=== PATIENT | female | born 1965 | race Caucasian/White ===

== ENCOUNTER → 2018-01-30 | Outpatient (CLI) | payer BC ==
[~2018-01-30] MED LIST: RANI1TAB4 PO
[2018-01-30 11:59] LABS: Urine Blood Negative /uL (Negative); Urine Specific Gravity 1.015 (1.001-1.035)
[2018-01-30 12:01] LABS: Basophils # (auto) 0 uL; Basophils % (auto) 0.7 % (0.0-2.0); Eosinophils # (auto) 0.1 uL; Eosinophils % (auto) 1.6 % (0.0-7.0); Hemoglobin 13.6 g/dL (12.2-16.2); Lymphocytes # (auto) 1.2 uL; Lymphocytes % (auto) 31.2 % (10.0-50.0); Mean Corpuscular Hemoglobin 30.6 pg (28.0-32.0); Mean Corpuscular Hgb Conc. 33.3 g/dL (32.0-36.0); Mean Corpuscular Volume 91.8 fL (80.0-100.0); Monocytes # (auto) 0.3 uL; Monocytes % (auto) 7.6 % (0.0-12.0); Neutrophils # (auto) 2.3 uL; Neutrophils % (auto) 58.9 % (37.0-80.0); Nucleated Red Blood Cells % 0.2 %; Platelet Count (auto) 243 10^3/uL (140-450); Red Blood Cells 4.46 10^6/uL (4.0-5.20); Red Cell Distribution Width 13.2 % (11.8-14.3); White Blood Cell 3.9 10^3/uL (4.4-10.8)
[2018-01-30 12:19] LABS: Free T4 (Free Thyroxine) 0.9 ng/dL (0.89-1.76)
[2018-01-30 12:21] LABS: Albumin 4.2 g/dL (3.4-5.0); BUN/Creatinine Ratio 10.3; Bilirubin, Total 0.3 mg/dL (0.2-1.0); Calcium 9.3 mg/dL (8.5-10.1); Total Protein 8.2 g/dL (6.4-8.2)
== END | disposition home or self-care (01) ==
LOC: Rad HDHVI 09:51
PROVIDERS: ATTEND Internal Medicine Cardiovascular Disease
DX: I34.0 Nonrheumatic mitral (valve) insufficiency (principal); I20.9 Angina pectoris, unspecified; I10 Essential (primary) hypertension; E03.9 Hypothyroidism, unspecified; E11.9 Type 2 diabetes mellitus without complications; E55.9 Vitamin D deficiency, unspecified; D51.9 Vitamin B12 deficiency anemia, unspecified; N39.0 Urinary tract infection, site not specified
CPT/HCPCS: 36415; 80053; 80061; 81003; 82306; 82607; 83036; 84439; 84443; 85025; 87086; 93306

== ENCOUNTER → 2018-02-07 | Outpatient (CLI) | payer BC ==
[~2018-02-07] MED LIST changes: +IOHEXOL 350 MG/ML 100ML IJ ONE
[2018-02-07 08:30] VITALS: BP 148/74
[2018-02-07 08:57] VITALS: BP 140/53
== END | disposition home or self-care (01) ==
LOC: Rad HDHVI 08:22
PROVIDERS: ATTEND Internal Medicine Cardiovascular Disease
DX: E04.8 Other specified nontoxic goiter (principal)
CPT/HCPCS: 71275; 82565; G0463; Q9967

== ENCOUNTER → 2019-04-22 | Outpatient (CLI) | payer BC ==
[~2019-04-22] MED LIST changes: -IOHEXOL 350 MG/ML 100ML IJ ONE; -RANI1TAB4 PO; +RANI75TA65 PO
== END | disposition home or self-care (01) ==
LOC: Rad HDHVI 11:41
PROVIDERS: ATTEND Internal Medicine Cardiovascular Disease
DX: I20.9 Angina pectoris, unspecified (principal); E06.3 Autoimmune thyroiditis; R00.2 Palpitations
CPT/HCPCS: 93880

== ENCOUNTER → 2019-05-11 | Outpatient (CLI) | payer BC ==
[~2019-05-11] VITALS: Ht 165.1 cm; Wt 62.6 kg
== END | disposition home or self-care (01) ==
LOC: Rad HDHVI 13:13
PROVIDERS: ATTEND Internal Medicine Cardiovascular Disease
DX: I34.0 Nonrheumatic mitral (valve) insufficiency (principal); I20.0 Unstable angina; I10 Essential (primary) hypertension; R07.89 Other chest pain; R42 Dizziness and giddiness; R00.2 Palpitations
CPT/HCPCS: 78452; 93017; 93306; 96374; A9500

== ENCOUNTER → 2019-05-18 | Outpatient (CLI) | payer BC | END | disposition home or self-care (01) | LOC: LAB 12:03 | PROVIDERS: ATTEND Internal Medicine Cardiovascular Disease | DX: Z13.88 Encounter for screening for disorder due to exposure to contaminants (principal); R21 Rash and other nonspecific skin eruption; R23.4 Changes in skin texture; G60.9 Hereditary and idiopathic neuropathy, unspecified; R51 Headache; R20.2 Paresthesia of skin; R11.2 Nausea with vomiting, unspecified | CPT/HCPCS: 36415; 83655; 83825; 85652; 86141; 86256 ==

== ENCOUNTER → 2019-05-20 | Outpatient (CLI) | payer BC | END | disposition home or self-care (01) | LOC: LAB 11:35 | PROVIDERS: ATTEND Internal Medicine Cardiovascular Disease | DX: T56.1X1A Toxic effect of mercury and its compounds, accidental (unintentional), initial encounter (principal); R78.71 Abnormal lead level in blood; X58.XXXA Exposure to other specified factors, initial encounter | CPT/HCPCS: 83655; 83825 ==

== ENCOUNTER → 2021-03-09 | Emergency (ER) | payer BC ==
[~2021-03-09] VITALS: Ht 165.1 cm; Wt 69.4 kg
[~2021-03-09] MED LIST changes: +ONDANSETRON ODT 4 MG TAB PO ONE; +SUMAtriptan SUCCINATE 6 MG/0.5 ML VL SC ONE
[2021-03-09 19:51] VITALS: BP 142/92
[2021-03-09 20:19] LABS: Basophils # (auto) 0 10 ^3/uL (0-0.2); Basophils % (auto) 0.4 % (0.0-2.0); Eosinophils # (auto) 0 10 ^3/uL (0-0.8); Eosinophils % (auto) 0.3 % (0.0-7.0); Hematocrit 38.8 % (36.0-46.0); Hemoglobin 12.8 g/dL (12.2-16.2); Lymphocytes # (auto) 1.7 10 ^3/uL (0.4-5.4); Lymphocytes % (auto) 29.8 % (10.0-50.0); Mean Corpuscular Hemoglobin 29.6 pg (28.0-32.0); Mean Corpuscular Hgb Conc. 33.1 g/dL (32.0-36.0); Mean Corpuscular Volume 89.5 fL (80.0-100.0); Monocytes # (auto) 0.3 10 ^3/uL (0-1.3); Monocytes % (auto) 5.6 % (0.0-12.0); Neutrophils # (auto) 3.6 10 ^3/uL (1.6-8.6); Neutrophils % (auto) 63.9 % (37.0-80.0); Red Blood Cells 4.33 10^6/uL (4.0-5.20); Red Cell Distribution Width 13.8 % (11.8-14.3); White Blood Cell 5.7 10^3/uL (4.4-10.8)
[2021-03-09 20:39] LABS: Albumin 3.9 g/dL (3.4-5.0); BUN/Creatinine Ratio 16.9; Calcium 8.6 mg/dL (8.5-10.1); Potassium 3.8 mmol/L (3.5-5.1)
[2021-03-09 20:42] LABS: Bilirubin, Total 0.4 mg/dL (0.2-1.0)
== END | disposition home or self-care (01) ==
LOC: ER 15:34
DX: R51.9 Headache, unspecified (principal)
CPT/HCPCS: 36415; 70450; 80053; 85025; 96372; 99284; J3030; Q0162

== ENCOUNTER → 2022-01-12 | Outpatient (CLI) | payer BC ==
[~2022-01-12] MED LIST changes: +MULTIPLE VIT 10 ML IV ONE; +MVI in SODIUM CHLORIDE 0.9% 1,000 ML IVB ONE; -ONDANSETRON ODT 4 MG TAB PO ONE; -SUMAtriptan SUCCINATE 6 MG/0.5 ML VL SC ONE
[2022-01-12 13:00] VITALS: BP 135/94
[2022-01-12 13:40] VITALS: BP 122/80
[2022-01-12 14:30] VITALS: BP 126/67
[2022-01-12 15:00] VITALS: BP 140/68
[2022-01-12 15:45] VITALS: BP 132/62
[2022-01-12 16:35] VITALS: BP 125/63
== END | disposition home or self-care (01) ==
LOC: CHF HDHVI 13:03
PROVIDERS: ATTEND Internal Medicine Cardiovascular Disease
DX: E86.0 Dehydration (principal)
CPT/HCPCS: 96365; 96366; G0463; J7030; 96360

== ENCOUNTER → 2022-09-26 | Outpatient (CLI) | payer BC ==
[~2022-09-26] MED LIST changes: +IOHEXOL 350 MG/ML 100ML IJ ONE; -MULTIPLE VIT 10 ML IV ONE; -MVI in SODIUM CHLORIDE 0.9% 1,000 ML IVB ONE; +NITR-87 PO; +READI-CAT 2 (BARIUM SULF)(VANILLA SMOOTHIE) 450ML ONE
[2022-09-26 10:10] VITALS: BP 137/75
[2022-09-26 11:11] VITALS: BP 149/78
== END | disposition home or self-care (01) ==
LOC: Rad HDHVI 10:04
PROVIDERS: ATTEND Internal Medicine Cardiovascular Disease
DX: R06.02 Shortness of breath (principal); R10.9 Unspecified abdominal pain
CPT/HCPCS: 71046; 74177; G0463; Q9967

== ENCOUNTER 2022-11-23 06:32 | Emergency (ER) | payer BC ==
[~2022-11-23] VITALS: Ht 165.1 cm; Wt 65.9 kg
[~2022-11-23 06:32] MED LIST changes: -IOHEXOL 350 MG/ML 100ML IJ ONE; -READI-CAT 2 (BARIUM SULF)(VANILLA SMOOTHIE) 450ML ONE
[2022-11-23 07:40] VITALS: BP 127/59; PULSE 98; RESP 16; TEMP 97.3; O2SAT 98
[2022-11-23] MEDS ORDERED: KETOROLAC TROMETH 60MG/2ML VIAL IM ONE (08:30)
[2022-11-23] MEDS ORDERED: ACET-1080 PO (09:03)
== END 2022-11-23 09:07 | disposition home or self-care (01) ==
LOC: ER 06:32
DX: G44.209 Tension-type headache, unspecified, not intractable (principal)
CPT/HCPCS: 70450; 96372; 99285; J1885

== ENCOUNTER 2023-10-05 21:08 | Emergency (ER) | payer BC ==
[~2023-10-05] VITALS: Ht 165.1 cm; Wt 64.0 kg
[~2023-10-05 21:08] MED LIST changes: +ACET-1080 PO
[2023-10-05 22:27] LABS: Basophils # (auto) 0 10 ^3/uL (0-0.2); Basophils % (auto) 0.2 % (0.0-2.0); Eosinophils # (auto) 0 10 ^3/uL (0-0.8); Eosinophils % (auto) 0.1 % (0.0-7.0); Hematocrit 42.2 % (36.0-46.0); Hemoglobin 14.6 g/dL (12.2-16.2); Mean Corpuscular Hemoglobin 30.7 pg (28.0-32.0); Mean Corpuscular Hgb Conc. 34.6 g/dL (32.0-36.0); Mean Corpuscular Volume 88.7 fL (80.0-100.0); Monocytes # (auto) 0.8 10 ^3/uL (0-1.3); Monocytes % (auto) 7.8 % (0.0-12.0); Neutrophils % (auto) 81.9 % (37.0-80.0); Red Blood Cells 4.76 10^6/uL (4.0-5.20); Red Cell Distribution Width 13.7 % (11.8-14.3); White Blood Cell 9.8 10^3/uL (4.4-10.8)
[2023-10-05 22:43] LABS: Alanine Aminotransferase 14 U/L (7-40); Albumin 4.6 g/dL (3.2-4.8); Alkaline Phosphatase 57 U/L (46-116); Anion Gap 7 (5-15); Aspartate Aminotransferase < 8 U/L (13-40); BUN/Creatinine Ratio 6.5 (10.0-20.0); Blood Urea Nitrogen 6 mg/dL (9-23); Calcium 9.7 mg/dL (8.7-10.4); Carbon Dioxide 26 mmol/L (20-30); Chloride 102 mmol/L (98-107); Glucose 112 mg/dL (74-106); Potassium 3.8 mmol/L (3.5-5.1); Sodium 135 mmol/L (136-145)
[2023-10-05 22:44] LABS: Bilirubin, Total 0.7 mg/dL (0.2-1.0); Total Protein 7.2 g/dL (5.7-8.2)
[2023-10-05] MEDS ORDERED: ACETAMINOPHEN 325 MG TAB PO ONE (23:00)
[2023-10-05] MEDS: SODIUM CHLORIDE 0.9% 1,000 ML IV ONE (23:00)
[2023-10-05] MEDS ORDERED: IBUP-1453 PO (23:01)
[2023-10-05] MEDS ORDERED: ZOFR4T PO (23:01)
[2023-10-05] MEDS: ONDANSETRON ODT 4 MG TAB PO ONE (23:44)
[2023-10-05] MEDS: IBUPROFEN 600 MG TAB PO ONE (23:44)
[2023-10-05 23:45] VITALS: BP 117/60; PULSE 90; RESP 18; TEMP 97.8; O2SAT 99
== END 2023-10-06 01:16 | disposition home or self-care (01) ==
LOC: ER 21:08
DX: R51.9 Headache, unspecified (principal)
CPT/HCPCS: 36415; 70450; 80053; 85025; 96360; 96361; 99284; J7030; Q0162

== ENCOUNTER → 2023-10-09 | Outpatient (CLI) | payer BC ==
[~2023-10-09] MED LIST changes: +IBUP-1453 PO; +IOHEXOL 350 MG/ML 100ML IJ ONE; +ZOFR4T PO
[2023-10-09 10:25] VITALS: BP 115/72; PULSE 75; RESP 16; O2SAT 96
[2023-10-09 10:41] VITALS: BP 125/64; PULSE 74; RESP 16; O2SAT 96
== END | disposition home or self-care (01) ==
LOC: Rad HDHVI 10:13
PROVIDERS: ATTEND Internal Medicine Cardiovascular Disease
DX: R05.9 Cough, unspecified (principal); R06.9 Unspecified abnormalities of breathing; R07.9 Chest pain, unspecified
CPT/HCPCS: 71260; G0463; Q9967

== ENCOUNTER → 2023-10-15 | Outpatient (CLI) | payer BC ==
[~2023-10-15] MED LIST changes: -IOHEXOL 350 MG/ML 100ML IJ ONE
[2023-10-15 14:15] VITALS: BP 111/72; PULSE 65; RESP 16; O2SAT 100
[2023-10-15] MEDS: MULTIPLE VIT 10 ML IV ONE (14:21)
[2023-10-15] MEDS: methylPREDNISolone SOD SUCC 40 MG/ML VL ONE (14:21)
[2023-10-15] MEDS: cefTRIAXone 1GM/50ML D5W 50 ML IV ONE ×2 (14:21→14:22)
[2023-10-15] MEDS: methylPREDNISolone SOD SUCC 125 MG/2 ML VL IV ONE (14:52)
[2023-10-15] MEDS: MVI in SODIUM CHLORIDE 0.9% 500 ML IVB ONE (14:53)
[2023-10-15] MEDS: ONDANSETRON HCL 4 MG/2 ML VIAL ONE (17:08)
[2023-10-15] MEDS: ONDANSETRON HCL 4 MG/2 ML VIAL IV ONE (17:09)
[2023-10-15 17:17] VITALS: BP 122/74; PULSE 65; RESP 16; O2SAT 100
== END | disposition home or self-care (01) ==
LOC: CHF HDHVI 14:09
PROVIDERS: ATTEND Internal Medicine Cardiovascular Disease
DX: J06.9 Acute upper respiratory infection, unspecified (principal); E86.0 Dehydration; R11.0 Nausea
CPT/HCPCS: 96365; 96366; 96367; 96375; G0463; J0696; J2405; J2919; J3411; J3475; J7040; 96361

== ENCOUNTER → 2024-08-19 | Outpatient (CLI) | payer BC ==
[2024-08-19 11:31] VITALS: BP 131/71; PULSE 71; RESP 17; O2SAT 99
[2024-08-19] MEDS: MULTIPLE VIT 10 ML IV ONE (11:43)
[2024-08-19] MEDS: MVI in SODIUM CHLORIDE 0.9% 1,000 ML IVB ONE (11:50)
[2024-08-19 15:07] VITALS: BP 151/76; PULSE 70; RESP 16; O2SAT 99
== END | disposition home or self-care (01) ==
LOC: CHF HDHVI 11:28
PROVIDERS: ATTEND Internal Medicine Cardiovascular Disease
DX: I10 Essential (primary) hypertension (principal); R53.83 Other fatigue; E78.5 Hyperlipidemia, unspecified
CPT/HCPCS: 96365; 96366; G0463; J7030; 96360; 96361

== ENCOUNTER → 2024-08-26 | Outpatient (CLI) | payer BC ==
[~2024-08-26] VITALS: Ht 165.1 cm; Wt 66.7 kg
--- NOTE | 2024-09-04 12:52 | DVHSR ---
APPROVED REPORT Exam: Nuclear Stress Test Indication: Chest pain Ht: 5 ft 5 in Wt: 147 lbs BSA: 1.74 m2 HR: 72 bpm BP: 125/63 mmHg BMI: 24.45 Rhythm: NSR Medical History Medical History: Chest pain, HTN, SOB, COPD, Hypercholesterolemia Medications: Systane, Prilosec, Nexium Allergies: Bactrim, Nettie Cardiac Risk Factors: Family Hx of CAD Stress Test Details Stress Test: Exercise stress testing was performed using a Alexander protocol. HR Resting HR: 72 bpmMax Heart Rate (APMHR): 159.112527 bpm Max HR Achieved: 133 bpmTarget HR (85% APMHR): 135.957657 bpm % of APMHR: 83.65 Recovery HR: 83 bpm HR response to stress: Normal HR response to stress BP Resting BP: 125/63 mmHg Max BP: 173/69 mmHg Recovery BP: 136/70 mmHg BP response to stress: Exaggerated response ECG Resting ECG: Sinus Rhythm Stress ECG: Sinus Tachycardia Arrhythmia: None Recovery ECG: Sinus Rhythm Clinical Reason for Termination: Leg weakness, Lightheadedness Stress Symptoms: Leg Fatigue, Lightheadedness Exercise duration: 8 min 33 sec Exercise capacity: 10.8 METs Symptoms improved during recovery. Stress ECG Conclusion NON ISCHEMIC CLINICAL RESPONSE NON ISCHEMIC ECG RESPONSE CARDIOLITE STRESS PERFUSION SCAN WAS NON ISCHEMIC LESS THAN 10% LIKELIHOOD FOR STRESS INDUCED ISCHEMIA EF >55% NM EXAM: Myocardial Perfusion REST/STRESS Imaging Protocol: Rest Tc-99m/Stress Tc-99m 1 day Resting Data Rest SPECT myocardial perfusion imaging was performed in supine position 30 minutes following the int ravenous injection of 10.82 mCi of Tc-99m Sestamibi. Time of rest injection: 1325 Date: 08/26/2024 Time of rest imagin Date: 08/26/2024 Administration Route: IV Administration Site: Left AC Exercise Stress At peak stress, the patient was injected intravenously with 32.5 mCi of Tc-99m Sestamibi. Time of stress injection: 1436 Date: 08/26/2024 Time of stress imagin Date: 08/26/2024 Administration Route: IV Administration Site: Left AC Heart Rate at time of stress injection: 131 bpm. Patient continued to exercise for 0.5 minute(s). Gated Stress SPECT was performed 15 minutes after stress injection. The images were gated to evaluate regional wall motion and calculate left ventricular ejection fracti on. Comments Cardiolite injection at 8 minutes, 30 seconds into test. Study Data Post stress, the left ventricular ejection was 61%.. Nuclear Conclusion ECG Findings: negative for ischemia Clinical Findings: negative for ischemia Nuclear Findings: negative for ischemia Left Ventricular Function: normal NON ISCHEMIC CLINICAL RESPONSE NON ISCHEMIC ECG RESPONSE CARDIOLITE STRESS PERFUSION SCAN WAS NON ISCHEMIC LESS THAN 10% LIKELIHOOD FOR STRESS INDUCED ISCHEMIA EF >55%
== END | disposition home or self-care (01) ==
LOC: Rad HDHVI 13:12
PROVIDERS: ATTEND Internal Medicine Cardiovascular Disease
DX: R00.0 Tachycardia, unspecified (principal); I10 Essential (primary) hypertension; R06.02 Shortness of breath; R07.89 Other chest pain; R53.83 Other fatigue; J44.9 Chronic obstructive pulmonary disease, unspecified; E78.00 Pure hypercholesterolemia, unspecified; R53.1 Weakness; M35.00 Sjogren syndrome, unspecified; R42 Dizziness and giddiness; Z82.49 Family history of ischemic heart disease and other diseases of the circulatory system
CPT/HCPCS: 78452; 93017; A9500; 96374

== ENCOUNTER → 2024-08-28 | Outpatient (CLI) | payer BC | END | disposition home or self-care (01) | LOC: Rad HDHVI 12:48 | PROVIDERS: ATTEND Internal Medicine Cardiovascular Disease | DX: I10 Essential (primary) hypertension (principal); E78.5 Hyperlipidemia, unspecified | CPT/HCPCS: 93306 ==

== ENCOUNTER 2024-11-26 09:05 | Outpatient (CLI) | payer BC ==
[2024-11-26 09:34] LABS: Urine Protein, UAD Negative (Negative)
== END 2024-11-26 17:00 | disposition home or self-care (01) ==
LOC: LAB 09:05
PROVIDERS: ATTEND Obstetrics & Gynecology
DX: N39.0 Urinary tract infection, site not specified (principal); N95.1 Menopausal and female climacteric states
CPT/HCPCS: 36415; 81001; 82670; 83001; 84403; 87086